=== PATIENT | female | born 1940 | race African-American/Black ===

== ENCOUNTER 2019-03-24 07:07 | Emergency (ER) | payer MEDICARE, OTHER ==
[2019-03-24] MEDS ORDERED: IPRATROPIUM (NEB) 0.5 MG/2.5 ML AMP INH (07:17)
[2019-03-24] MEDS ORDERED: ALBUTEROL 0.5% (NEB) 2.5 MG/0.5 ML AMP INH ×2 (07:17→09:35)
[2019-03-24] MEDS ORDERED: VANCOMYCIN 1 GM (PMX) 250 ML IVPB (07:30)
[2019-03-24 08:08] LABS: AADO2 Arterial 398.1 mmHg (7.0-24.0); Allen Test ACCEPTAB; Arterial Base Excess -4.2 mmol/L (-3.0-3); Arterial Blood Gas Oxygen Sat 99.2 mmHG (95.0-100.0); Arterial COHb 1.1 % (0.0-3.0); Arterial Fraction of Oxyhgb 97.8 % (93.0-99.0); Arterial HCO3 25.2 mmol/L (22.0-26.0); Arterial MetHb 0.3 % (0.0-1.5); Arterial pCO2 77.7 mmhg (35-45); Blood Gas IEPAP 15/5; Blood Gas PS 10; MODE MASK - BIPAP; Site Left Radial
[2019-03-24 08:57] LABS: ADD MAN DIFF? NO
[2019-03-24 09:04] LABS: WHITE BLOOD COUNT 10.9 10^3/ul (4.8-10.8)
[2019-03-24 09:04] LABS: ABNORMAL IP MESSAGE 1; BASOPHILS % 0.2 % (0.0-2.0); EOSINOPHILS % 0.1 % (0.0-7.0); HEMATOCRIT 23.6 % (37.0-47.0); LYMPHOCYTES # 0.6 10^3/ul (0.8-2.9); LYMPHOCYTES % 5.5 % (15.0-51.0); MEAN CORPUSCULAR HEMOGLOBIN 28.9 pg (29.0-33.0); MEAN CORPUSCULAR HGB CONC 28.8 g/dl (32.0-37.0); MEAN CORPUSCULAR VOLUME 100.4 fl (82.0-101.0); MEAN PLATELET VOLUME 10.8 fl (7.4-10.4); MONOCYTE # 0.6 10^3/ul (0.3-0.9); MONOCYTES % 5.4 % (0.0-11.0); NEUTROPHIL # 9.6 10^3/ul (1.6-7.5); NEUTROPHILS % 88.2 % (39.0-77.0); PLATELET COUNT 210 10^3/UL (140-415); RED BLOOD COUNT 2.35 10^6/ul (4.20-5.40); RED CELL DISTRIBUTION WIDTH 16.7 % (11.5-14.5)
[2019-03-24] MEDS: SOD CHLORIDE 0.9% 1,000 ML IV (09:04)
[2019-03-24] MEDS: CEFEPIME 2GM/50 ML (PMX) 50 ML IVPB (09:04)
[2019-03-24] MEDS ORDERED: MIDAZOLAM (DRIP) 50 mg/50 mL 50 ML IV (09:11)
[2019-03-24 09:13] LABS: POSITIVE DIFF @See below
[2019-03-24 09:17] LABS: HEMOGLOBIN 6.8 g/dl (12.0-16.0)
[2019-03-24 09:18] LABS: PATH REVIEW? YES
[2019-03-24 09:24] LABS: ALANINE AMINOTRANSFERASE 34 IU/L (13-69); ALBUMIN 3.4 g/dl (3.3-4.9); ALBUMIN/GLOBULIN RATIO 1.13; ALKALINE PHOSPHATASE 96 IU/L (42-121); AMYLASE 106 U/L (11-123); ANION GAP 20 (5-13); ASPARTATE AMINO TRANSFERASE 30 IU/L (15-46); BILIRUBIN,INDIRECT 0.2 mg/dl (0-1.1); BILIRUBIN,TOTAL 0.2 mg/dl (0.2-1.3); CALCIUM 8.7 mg/dl (8.4-10.2); CARBON DIOXIDE 23 mmol/L (21-31); CHLORIDE 91 mmol/L (97-110); GLUCOSE 62 mg/dl (70-220); LIPASE 95 U/L (23-300); SODIUM 134 mmol/L (135-144); TOTAL PROTEIN 6.4 g/dl (6.1-8.1)
[2019-03-24 09:28] LABS: INR 1.07; PARTIAL THROMBOPLASTIN TIME 25.5 Sec (23.0-35.0); PT RATIO 1.1
[2019-03-24 09:35] LABS: POTASSIUM 7.8 mmol/L (3.5-5.1)
[2019-03-24] MEDS ORDERED: SODIUM POLYSTYRENE 15 GM KIT (POWDER + SORBITOL) PO (09:35)
[2019-03-24 09:43] LABS: BLOOD UREA NITROGEN 136 mg/dl (7-20); CREATININE 6.07 mg/dl (0.44-1.00)
[2019-03-24] MEDS: NA BICARBONATE 8.4% 50 ML SYG IV (09:44)
[2019-03-24] MEDS: CA CHLORIDE 10% 10 ML SYRINGE IV (09:44)
[2019-03-24 09:46] LABS: TROPONIN-I 0.405 ng/ml (0.000-0.120)
[2019-03-24] MEDS: ETOMIDATE 20 MG INJ IV (10:14)
[2019-03-24] MEDS: SUCCINYLCHOLINE CHLORIDE 100 MG/5 ML SYG IV (10:15)
[2019-03-24] MEDS ORDERED: NORepinephrine 8MG/250 ML (PMX 250 ML (10:18)
[2019-03-24 10:29] LABS: ANISOCYTOSIS 1+ (0-0); BAND NEUTROPHILS #M 0.3 10^3/ul (0.0-0.6); BAND NEUTROPHILS % (M) 3 % (0-4); GIANT THROMBO% (M) 1 % (0-0); LYMPHOCYTES #M 0.5 10^3/ul (0.8-2.9); LYMPHOCYTES % (M) 5 % (15-51); MONOCYTE #M 0.5 10^3/ul (0.3-0.9); MONOCYTES % (M) 5 % (0-11); MYELOCYTES #M 0.1 10^3/ul (0.0-0.0); MYELOCYTES % (M) 1 % (0-0); PLATELET ESTIMATE NORMAL; POIKILOCYTOSIS 1+ (0-0); POLYCHROMASIA 2+ (0-0); SEG NEUT #M 9.4 10^3/ul (1.6-7.5); SEGMENTED NEUTROPHILS (M) % 86 % (39-77); SMUDGE%M 5 % (0-0)
[2019-03-24] MEDS ORDERED: NA BICARBONATE 8.4% 50 ML SYG (20:00)
[2019-03-24] MEDS ORDERED: DEXTROSE 50% 50 ML SYRINGE (20:00)
[2019-03-24] MEDS ORDERED: EPINEPHrine 10 MCG/1ml (10 ML SYG) IV (20:00)
== END 2019-03-24 13:59 | disposition expired ==
LOC: E/R 07:07
DX: I12.0 Hypertensive chronic kidney disease with stage 5 chronic kidney disease or end stage renal disease (principal); R06.00 Dyspnea, unspecified; N18.6 End stage renal disease; I46.9 Cardiac arrest, cause unspecified; E87.5 Hyperkalemia; E11.22 Type 2 diabetes mellitus with diabetic chronic kidney disease; Z99.2 Dependence on renal dialysis; Z79.4 Long term (current) use of insulin
CPT/HCPCS: 31500; 36600; 71045; 76937; 80053; 82150; 82803; 82962; 83605; 83690; 84484; 85025; 85610; 85730; 87040-91; 92950; 93005; 94002; 94660; 96374; 96375; 99285-25